=== PATIENT | male | born 1970 | race Caucasian/White ===

== ENCOUNTER 2021-08-03 13:10 | Inpatient (IN) | payer OTHER ==
[2021-08-03] MEDS ORDERED: METHOCARBAMOL 500 MG TABLET PO PRN (13:35)
[2021-08-03] MEDS ORDERED: MENTHOL/PHENOL 1 EACH UD MM PRN (13:35)
[2021-08-03] MEDS ORDERED: chlordiazePOXIDE HCL 25 MG CAPSULE PO PRN (13:35)
[2021-08-03] MEDS ORDERED: IBUPROFEN 400 MG TABLET (FP) PO PRN (13:35)
[2021-08-03] MEDS ORDERED: MAGNESIUM CITRATE 300 ML BOTTLE PO PRN (13:35)
[2021-08-03] MEDS ORDERED: BISMUTH SUBSALICYLATE 524 MG/30 ML PO PRN (13:35)
[2021-08-03] MEDS ORDERED: NICOTINE 10 MG CARTRIDGE (INHALER) IH PRN (13:35)
[2021-08-03] MEDS ORDERED: MAGNESIUM HYDROX 2400MG/30ML ORAL SUSPENSION 30 ML CUP PO PRN (13:35)
[2021-08-03] MEDS ORDERED: MAG HYDROX/AL HYDROX/SIMETH 30 ML UNIT-DOSE CUP PO PRN (13:35)
[2021-08-03] MEDS ORDERED: ACETAMINOPHEN 325 MG TABLET (FP) PO PRN ×2 (13:35)
[2021-08-03] MEDS ORDERED: ONDANSETRON *ODT* 4 MG TABLET SL PRN (13:35)
[2021-08-03 16:21] VITALS: BMI 25.4
[2021-08-03 18:05] LABS: HEMATOCRIT 45.6 % (35.4-49); HEMOGLOBIN 15.3 GM/dL (11.7-16.9); MCHC 33.5 g/dl (32.0-35.9); MEAN CELL VOLUME 89.5 fl (80-96); MEAN PLT VOLUME 8.1 fl (7.5-11.1); PLATELET COUNT 262 10^3/uL (134-434); RBC 5.09 M/mm3 (4.00-5.60); RDW 13.1 % (11.9-15.9); WHITE BLOOD COUNT 7.3 K/mm3 (4.0-10.0)
[2021-08-03 18:06] LABS: CALCIUM 9.1 mg/dL (8.5-10.1)
[2021-08-03 18:07] LABS: ALBUMIN 3.8 g/dl (3.4-5.0); BLOOD UREA NITROGEN 16.4 mg/dL (7-18)
[2021-08-03 18:10] LABS: CREATININE 0.9 mg/dL (0.55-1.3)
[2021-08-03 18:11] LABS: BILIRUBIN,TOTAL 0.5 mg/dL (0.2-1); TOT PROT 6.8 g/dl (6.4-8.2)
[2021-08-03] MEDS: NICOTINE 14 MG/24 HOURS TOPICAL PATCH TD SCH (18:56)
[2021-08-03] MEDS: hydrOXYzine PAMOATE 25 MG CAPSULE (FP) PO SCH ×2 (18:57→22:54)
[2021-08-03] MEDS: PRENATAL VITAMINS W/ FOLIC ACID TABLET (FP) PO SCH (18:57)
[2021-08-03] MEDS: chlordiazePOXIDE HCL 25 MG CAPSULE PO SCH ×2 (18:57→22:54)
[2021-08-03] MEDS: MELATONIN 5 MG TABLETS PO SCH (22:54)
[2021-08-03] MEDS: THIAMINE HCL 100 MG TABLET (FP) PO SCH (22:54)
[2021-08-04] MEDS: chlordiazePOXIDE HCL 25 MG CAPSULE PO SCH (06:36)
[2021-08-04] MEDS: hydrOXYzine PAMOATE 25 MG CAPSULE (FP) PO SCH ×5 (06:36→22:46)
[2021-08-04] MEDS: NICOTINE 14 MG/24 HOURS TOPICAL PATCH TD SCH (11:17)
[2021-08-04] MEDS: PRENATAL VITAMINS W/ FOLIC ACID TABLET (FP) PO SCH (11:18)
[2021-08-04] MEDS: ALBUTEROL SO4 HFA INHALER IH PRN (19:14)
[2021-08-04] MEDS: MELATONIN 5 MG TABLETS PO SCH (22:46)
[2021-08-04] MEDS: THIAMINE HCL 100 MG TABLET (FP) PO SCH (22:47)
[2021-08-05] MEDS ORDERED: chlordiazePOXIDE HCL 25 MG CAPSULE PO SCH (05:00)
[2021-08-05] MEDS: hydrOXYzine PAMOATE 25 MG CAPSULE (FP) PO SCH ×4 (06:32→18:28)
[2021-08-05] MEDS: NICOTINE 14 MG/24 HOURS TOPICAL PATCH TD SCH (10:07)
[2021-08-05] MEDS: PRENATAL VITAMINS W/ FOLIC ACID TABLET (FP) PO SCH (10:07)
[2021-08-05] MEDS: ALBUTEROL SO4 HFA INHALER IH PRN (10:27)
[2021-08-05 17:11] VITALS: BP 142/79; PULSE 66; TEMP 97.7
[2021-08-06] MEDS ORDERED: chlordiazePOXIDE HCL 10 MG CAPSULE PO PRN
[2021-08-06] MEDS ORDERED: chlordiazePOXIDE HCL 10 MG CAPSULE PO SCH (05:00)
[2021-08-07] MEDS ORDERED: chlordiazePOXIDE HCL 10 MG CAPSULE PO SCH (05:00)
[2021-08-08] MEDS ORDERED: chlordiazePOXIDE HCL 10 MG CAPSULE PO ONE (05:00)
== END 2021-08-05 19:49 | disposition other institution (70) | DRG 774 ==
LOC: YASAS 13:10 → Y6N 16:31
PROVIDERS: ADMIT Allergy & Immunology; ATTEND Allergy & Immunology
PROC: HZ2ZZZZ Detoxification Services for Substance Abuse Treatment (ICD-10-PCS; principal; 2021-08-03)
DX: F10.230 Alcohol dependence with withdrawal, uncomplicated (principal); F14.20 Cocaine dependence, uncomplicated; F17.213 Nicotine dependence, cigarettes, with withdrawal; J45.20 Mild intermittent asthma, uncomplicated; M19.011 Primary osteoarthritis, right shoulder
CPT/HCPCS: 36415; 80053; 85027; 86780; C9803; U0003; U0005

== ENCOUNTER 2021-08-05 20:01 | Inpatient (IN) | payer OTHER ==
[~2021-08-05 20:01] MED LIST: ACETAMINOPHEN 325 MG TABLET (FP) PO PRN; IBUPROFEN 400 MG TABLET (FP) PO PRN; LOPERAMIDE HCL 2 MG CAPSULE PO PRN; MAG HYDROX/AL HYDROX/SIMETH 30 ML UNIT-DOSE CUP PO PRN; MAGNESIUM CITRATE 300 ML BOTTLE PO PRN; MAGNESIUM HYDROX 2400MG/30ML ORAL SUSPENSION 30 ML CUP PO PRN; NICOTINE POLACRILEX 2 MG GUM BUC PRN; P-EPHED 60MG/TRIPROLIDI 2.5MG TABLET PO PRN; guaiFENesin 200 MG/10 ML 10 ML UNIT-DOSE CUPS PO PRN
[2021-08-05] MEDS: hydrOXYzine PAMOATE 25 MG CAPSULE (FP) PO SCH ×2 (21:00→21:34)
[2021-08-05] MEDS: MELATONIN 5 MG TABLETS PO SCH (21:34)
[2021-08-05] MEDS: THIAMINE HCL 100 MG TABLET (FP) PO SCH (21:34)
[2021-08-06] MEDS: hydrOXYzine PAMOATE 25 MG CAPSULE (FP) PO SCH ×5 (07:09→22:32)
[2021-08-06] MEDS ORDERED: NICOTINE 7 MG/24 HOURS TOPICAL PATCH TD SCH (10:00)
[2021-08-06] MEDS: NICOTINE 14 MG/24 HOURS TOPICAL PATCH TD SCH (11:51)
[2021-08-06] MEDS: PRENATAL VITAMINS W/ FOLIC ACID TABLET (FP) PO SCH (11:51)
[2021-08-06] MEDS: MELATONIN 5 MG TABLETS PO SCH (22:32)
[2021-08-06] MEDS: THIAMINE HCL 100 MG TABLET (FP) PO SCH (22:32)
[2021-08-07] MEDS: hydrOXYzine PAMOATE 25 MG CAPSULE (FP) PO SCH (07:10)
[2021-08-07] MEDS ORDERED: hydrOXYzine PAMOATE 25 MG CAPSULE (FP) PO PRN (09:17)
[2021-08-07] MEDS: NICOTINE 14 MG/24 HOURS TOPICAL PATCH TD SCH (09:37)
[2021-08-07] MEDS: PRENATAL VITAMINS W/ FOLIC ACID TABLET (FP) PO SCH (09:37)
[2021-08-07] MEDS: ALBUTEROL SO4 HFA INHALER IH PRN (13:15)
[2021-08-07] MEDS ORDERED: cloNIDine HCL 0.1 MG TABLET PO PRN (19:11)
[2021-08-07] MEDS: MELATONIN 5 MG TABLETS PO SCH (21:27)
[2021-08-07] MEDS: THIAMINE HCL 100 MG TABLET (FP) PO SCH (21:27)
[2021-08-08] MEDS: ALBUTEROL SO4 HFA INHALER IH PRN (06:30)
[2021-08-08] MEDS: PRENATAL VITAMINS W/ FOLIC ACID TABLET (FP) PO SCH (10:12)
[2021-08-08] MEDS: NICOTINE 14 MG/24 HOURS TOPICAL PATCH TD SCH (10:12)
[2021-08-08] MEDS: MELATONIN 5 MG TABLETS PO SCH (21:52)
[2021-08-08] MEDS: THIAMINE HCL 100 MG TABLET (FP) PO SCH (21:52)
[2021-08-09] MEDS: NICOTINE 14 MG/24 HOURS TOPICAL PATCH TD SCH (10:13)
[2021-08-09] MEDS: PRENATAL VITAMINS W/ FOLIC ACID TABLET (FP) PO SCH (10:13)
[2021-08-09] MEDS: NICOTINE 10 MG CARTRIDGE (INHALER) IH PRN (19:55)
[2021-08-09] MEDS: THIAMINE HCL 100 MG TABLET (FP) PO SCH (21:26)
[2021-08-09] MEDS: MELATONIN 5 MG TABLETS PO SCH (21:26)
[2021-08-10] MEDS: PRENATAL VITAMINS W/ FOLIC ACID TABLET (FP) PO SCH (10:43)
[2021-08-10] MEDS: NICOTINE 14 MG/24 HOURS TOPICAL PATCH TD SCH (10:43)
[2021-08-10] MEDS: NICOTINE 10 MG CARTRIDGE (INHALER) IH PRN (17:49)
[2021-08-10] MEDS: THIAMINE HCL 100 MG TABLET (FP) PO SCH (21:31)
[2021-08-10] MEDS: MELATONIN 5 MG TABLETS PO SCH (21:31)
[2021-08-11] MEDS: ALBUTEROL SO4 HFA INHALER IH PRN (08:25)
[2021-08-11] MEDS: NICOTINE 14 MG/24 HOURS TOPICAL PATCH TD SCH (10:02)
[2021-08-11] MEDS: PRENATAL VITAMINS W/ FOLIC ACID TABLET (FP) PO SCH (10:02)
[2021-08-11] MEDS: MELATONIN 5 MG TABLETS PO SCH (21:48)
[2021-08-11] MEDS: THIAMINE HCL 100 MG TABLET (FP) PO SCH (21:48)
[2021-08-12] MEDS: NICOTINE 10 MG CARTRIDGE (INHALER) IH PRN (06:49)
[2021-08-12] MEDS: PRENATAL VITAMINS W/ FOLIC ACID TABLET (FP) PO SCH (10:10)
[2021-08-12] MEDS: NICOTINE 14 MG/24 HOURS TOPICAL PATCH TD SCH (10:10)
[2021-08-12] MEDS: MELATONIN 5 MG TABLETS PO SCH (21:48)
[2021-08-12] MEDS: THIAMINE HCL 100 MG TABLET (FP) PO SCH (21:48)
[2021-08-13] MEDS: PRENATAL VITAMINS W/ FOLIC ACID TABLET (FP) PO SCH (09:58)
[2021-08-13] MEDS: NICOTINE 14 MG/24 HOURS TOPICAL PATCH TD SCH (09:58)
[2021-08-13] MEDS: TOLNAFTATE 1% CREAM 15 GM TUBE TP SCH ×2 (10:05→21:52)
[2021-08-13] MEDS ORDERED: ALBUTEROL SO4 HFA INHALER IH PRN (12:06)
[2021-08-13] MEDS: NICOTINE 10 MG CARTRIDGE (INHALER) IH PRN (12:54)
[2021-08-13] MEDS: THIAMINE HCL 100 MG TABLET (FP) PO SCH (21:52)
[2021-08-13] MEDS: MELATONIN 5 MG TABLETS PO SCH (21:52)
[2021-08-14] MEDS: PRENATAL VITAMINS W/ FOLIC ACID TABLET (FP) PO SCH (10:28)
[2021-08-14] MEDS: TOLNAFTATE 1% CREAM 15 GM TUBE TP SCH ×2 (10:28→22:57)
[2021-08-14] MEDS: NICOTINE 14 MG/24 HOURS TOPICAL PATCH TD SCH (10:28)
[2021-08-14] MEDS: NICOTINE 10 MG CARTRIDGE (INHALER) IH PRN (13:57)
[2021-08-14] MEDS: MELATONIN 5 MG TABLETS PO SCH (22:57)
[2021-08-14] MEDS: THIAMINE HCL 100 MG TABLET (FP) PO SCH (22:57)
[2021-08-15] MEDS: PRENATAL VITAMINS W/ FOLIC ACID TABLET (FP) PO SCH (11:17)
[2021-08-15] MEDS: TOLNAFTATE 1% CREAM 15 GM TUBE TP SCH ×2 (11:17→23:00)
[2021-08-15] MEDS: NICOTINE 14 MG/24 HOURS TOPICAL PATCH TD SCH (11:17)
[2021-08-15] MEDS: NICOTINE 10 MG CARTRIDGE (INHALER) IH PRN (12:26)
[2021-08-15] MEDS: MELATONIN 5 MG TABLETS PO SCH (23:00)
[2021-08-15] MEDS: THIAMINE HCL 100 MG TABLET (FP) PO SCH (23:00)
[2021-08-16 07:23] VITALS: BP 114/65; PULSE 63; TEMP 97.7
[2021-08-16] MEDS: NICOTINE 10 MG CARTRIDGE (INHALER) IH PRN (08:53)
[2021-08-16] MEDS: NICOTINE 14 MG/24 HOURS TOPICAL PATCH TD SCH (09:42)
[2021-08-16] MEDS: PRENATAL VITAMINS W/ FOLIC ACID TABLET (FP) PO SCH (09:42)
[2021-08-16] MEDS: TOLNAFTATE 1% CREAM 15 GM TUBE TP SCH (09:43)
== END 2021-08-16 13:10 | disposition home or self-care (01) | DRG 772 ==
LOC: YASAS 20:01 → Y3W 20:05 → Y5N 08-08 17:10
PROVIDERS: ADMIT Allergy & Immunology; ATTEND Allergy & Immunology
PROC: HZ42ZZZ Group Counseling for Substance Abuse Treatment, Cognitive-Behavioral (ICD-10-PCS; principal; 2021-08-05)
DX: F10.20 Alcohol dependence, uncomplicated (principal); F14.20 Cocaine dependence, uncomplicated; F17.210 Nicotine dependence, cigarettes, uncomplicated; J45.909 Unspecified asthma, uncomplicated; B35.3 Tinea pedis; R03.0 Elevated blood-pressure reading, without diagnosis of hypertension; R00.1 Bradycardia, unspecified; R07.9 Chest pain, unspecified; Z59.01 Sheltered homelessness
CPT/HCPCS: 93005; 93010; C9803; U0003; U0005